=== PATIENT | male | born 1995 | race Caucasian/White ===

== ENCOUNTER 2020-07-21 20:24 | Emergency (ER) | payer OTHER, BC, SELFPAY ==
[2020-07-21 21:15] VITALS: BP 149/99; PULSE 94; RESP 17; TEMP 36.4; O2SAT 98
--- NOTE | 2020-07-21 22:08 | ED.EYEPROB ---
HPI - Eye Problem General Chief complaint: Eye Problems Stated complaint: ? Metal shavings L eye Time Seen by Provider: 07/21/20 21:49 Source: patient Mode of arrival: ambulatory Limitations: no limitations History of Present Illness HPI Narrative: Patient is a 25-year-old male complaining of foreign body in the right eye, metal shaving went into the corner of his left eye while drilling a piece of metal. Patient denies any loss of vision. Denies any other pain or injuries. Related Data Allergies Allergy/AdvReac Type Severity Reaction Status Date / Time No Known Drug Allergies Allergy Other Verified 07/21/20 21:18 Review of Systems Review of Systems: All systems reviewed & are unremarkable except as noted in HPI and below PMFSH Comments Past medical history: None Family history: Noncontributory Social history: Non-smoker no EtOH or drug use Exam Const: General: no acute distress and alert Orientation/consciousness: patient oriented x3 HENMT: Head: normal to inspection and no contusions Ears: external ears normal General nose exam: Normal nares present Face and sinus: normal facial exam Mouth: Yes lip normal and Yes moist mucous membranes Eyes: Conjunctivae: conjunctivae normal Pupils: Equal, round and reactive pupils present EOM: EOMs intact bilaterally Other: Circular dark metal object in the lacrimal caruncle left eye. Clear conjunctiva. Clear cornea, negative for abrasion. Neck: Neck: normal visual inspection Course Vital Signs Vital signs: Vital Signs Temperature 36.4 C 07/21/20 21:15 Pulse Rate 94 07/21/20 21:15 Respiratory Rate 17 07/21/20 21:15 Blood Pressure 149/99 H 07/21/20 21:15 Pulse Oximetry 98 07/21/20 21:15 Temperature 36.4 C 07/21/20 21:15 Pulse Rate 94 07/21/20 21:15 Respiratory Rate 17 07/21/20 21:15 Blood Pressure 149/99 H 07/21/20 21:15 Pulse Oximetry 98 07/21/20 21:15 Procedures Foreign Body Removal Foreign Body #1: Foreign Body Removal Date: 07/21/20 Foreign Body Removal Time: 22:46 Time Out Performed: yes Site: left Description of foreign body: other (Metal filing) Sedation/Analgesia: none Technique: manual removal Confirmed by:: direct visualization Complications: none Post-procedure exam: awake, alert MDM - Eye Problem MDM Narrative Medical decision making narrative: Patient states that he would follow-up with the [facility] ophthalmology clinic. Differential Diagnosis Differential diagnosis: Likely corneal abrasion and other (Body) Discharge Plan Discharge Clinical Impression: Foreign body in conjunctival sac, left eye, initial encounter Patient Disposition: Home, Self-Care Condition: Improved Instructions: Eye Foreign Body (ED) Additional Instructions: Follow-up with an electronic warfare linguist, [facility] ophthalmology Prescriptions: New erythromycin 5 mg/gram (0.5 %) ointment 1 applic RIGHT EYE Q6H Qty: 3.5 RF: 0 Follow-up/Referrals: PHYSICIAN NOT ON STAFF,NONSTAFF [Non-Staff] - Time of Disposition: 22:15
[2020-07-21] MEDS: TETANUS,DIPHTHERIA,AC PERTUSSIS ADULT (0.5 ML) BOOSTRIX IM (22:21)
== END 2020-07-21 23:15 | disposition home or self-care (01) ==
PROVIDERS: Emergency Provider Emergency Medicine; PCP Hospitalist
DX: T15.12XA Foreign body in conjunctival sac, left eye, initial encounter (principal); Z23 Encounter for immunization
CPT/HCPCS: 65205; 90471; 90715; 99283

== ENCOUNTER 2021-01-13 15:11 | Emergency (ER) | payer BC, SELFPAY ==
[2021-01-13 15:32] VITALS: BP 143/95; PULSE 87; RESP 16; TEMP 37.1; O2SAT 99
--- NOTE | 2021-01-13 19:19 | PC.NURSE ---
RICKY Juan at bedside at this time.
--- NOTE | 2021-01-13 19:20 | ED.GENADULT ---
HPI - General Adult General Chief complaint: Extremity Injury, Upper <ASHER Siddiqui Last Filed: 01/13/21 19:24> Stated complaint: finger lac <ASHER Siddiqui Last Filed: 01/13/21 19:24> Time Seen by Provider: 01/13/21 15:36 <ASHER Siddiqui Last Filed: 01/13/21 19:24> Source: patient and RN notes reviewed <ASHER Siddiqui Last Filed: 01/13/21 19:24> Mode of arrival: ambulatory <ASHER Siddiqui Last Filed: 01/13/21 19:24> Limitations: no limitations <ASHER Siddiqui Last Filed: 01/13/21 19:24> History of Present Illness HPI narrative: Patient is a 26-year-old male who presents for evaluation of right index finger laceration that occurred just prior to arrival patient's hand was cut with a metal string on a [place] that broke just prior to arrival notes his tetanus is up-to-date notes mild aching pain worse with touch and activity denies other injury or complaint presents nondistressed. Denies any radicular symptoms paresthesias <ASHER Siddiqui Last Filed: 01/13/21 19:24> Related Data Allergies/adverse reactions: Allergies Allergy/AdvReac Type Severity Reaction Status Date / Time No Known Drug Allergies Allergy Other Verified 07/21/20 21:18 <ASHER Siddiqui Last Filed: 01/13/21 19:24> Review of Systems Review of Systems: CONSTITUTIONAL: Denies fever, chills, or sweats. SKIN: Positive for finger laceration MUSCULOSKELETAL: Denies any decreased range of motion or strength NEUROLOGIC: Denies numbness or tingling <ASHER Siddiqui Last Filed: 01/13/21 19:24> Exam Narrative: GENERAL: Well-appearing, well-nourished, and in no acute distress. HEAD: Normocephalic, atraumatic. EYES: PERRLA and EOMI. ENT: Nares clear, no rhinorrhea or epistaxis. Mucous membranes moist. EXTREMITIES: Normal range of motion. No edema. SKIN: Warm, dry, no rash. Patient with 3 cm laceration on the right index finger palmar aspect superficial in nature NEURO: No focal deficits. Alert and oriented x3. Neurovascularly intact. Capillary refill less than 2 seconds PSYCH: Normal mood and affect. <ASHER Siddiqui Last Filed: 01/13/21 19:24> Course Course Emergency Course: Patient in the room nondistressed aware of case findings treatment plan and diagnosis agreeing to follow-up as an start <ASHER Siddiqui Last Filed: 01/13/21 19:24> Vital Signs Vital signs: Vital Signs Temperature 98.8 F 01/13/21 15:32 Pulse Rate 87 01/13/21 15:32 Respiratory Rate 16 01/13/21 15:32 Blood Pressure 143/95 H 01/13/21 15:32 Pulse Oximetry 99 01/13/21 15:32 Temperature 98.8 F 01/13/21 15:32 Pulse Rate 87 01/13/21 15:32 Respiratory Rate 16 01/13/21 15:32 Blood Pressure 143/95 H 01/13/21 15:32 Pulse Oximetry 99 01/13/21 15:32 <ASHER Siddiqui Last Filed: 01/13/21 19:24> Procedures Laceration Laceration 1: Date: 01/13/21 <ASHER Siddiqui Last Filed: 01/13/21 19:24> Time: 19:22 <ASHER Siddiqui Last Filed: 01/13/21 19:24> Site: upper extremity <ASHER Siddiqui Last Filed: 01/13/21 19:24> Side (If applicable): right <ASHER Siddiqui Last Filed: 01/13/21 19:24> Size (cm): 3 <ASHER Siddiqui Last Filed: 01/13/21 19:24> Description: linear <ASHER Siddiqui Last Filed: 01/13/21 19:24> Depth: simple, single layer <ASHER Siddiqui Last Filed: 01/13/21 19:24> Local Anesthetic: lidocaine 1% <ASHER Siddiqui Last Filed: 01/13/21 19:24> Pre-repair: wound explored, irrigated and irrigated extensively <John Peterson PA-C - Last Filed: 01/13/21 19:24> Skin layer closed with: nylon <John Peterson PA-C - Last Filed: 01/13/21 19:24> Size (cm): 4-0 <John Escalona
[2021-01-13 19:32] VITALS: BP 137/74; PULSE 82; RESP 18; O2SAT 100
== END 2021-01-13 19:37 | disposition home or self-care (01) ==
PROVIDERS: Emergency Provider General Practice; PCP Hospitalist
DX: S61.210A Laceration without foreign body of right index finger without damage to nail, initial encounter (principal); W26.8XXA Contact with other sharp object(s), not elsewhere classified, initial encounter
CPT/HCPCS: 12002; 99282

== ENCOUNTER 2022-11-21 14:44 | Outpatient (CLI) | payer OTHER, SELFPAY | END 2022-11-21 14:45 | disposition home or self-care (01) | PROVIDERS: PCP Hospitalist; Visit Provider Obstetrics & Gynecology Gynecology | DX: Z31.89 Encounter for other procreative management (principal) | CPT/HCPCS: 36415; 86900; 86901; 86902; 86905 ==